=== PATIENT | female | born 1965 | race Caucasian/White ===

== ENCOUNTER 2017-05-01 13:59 | Emergency (ER) | payer OTHER ==
--- NOTE | 2017-05-01 14:40 | EDM.PDOC ---
ED HPI GENERAL MEDICAL PROBLEM - General Chief Complaint: Cardiovascular Problem Stated Complaint: SOB, ARMS TINGLEING Time Seen by Provider: 05/01/17 14:35 Source of Information: Reports: Patient, RN, RN Notes Reviewed History Limitations: Reports: No Limitations - History of Present Illness INITIAL COMMENTS - FREE TEXT/NARRATIVE: Pt presents to the ER with c/o chest pressure, SOB, and arm tingling. She states the symptoms have resolved for the most part. She states the symptoms began about 45 min prior to arrival while at the grocery store. Patient admits to history of panic disorder. Patient also c/o pain in the left thigh that comes and goes. She states she fell on her left knee about 1 year ago and the pain has come and gone since then, she admits to varicose veins. Onset: Today, Sudden Location: Reports: Chest Quality: Reports: Ache Severity: Mild Improves with: Reports: None Worsens with: Reports: None Left Groin Pain Score (Numeric/FACES): 4 - Related Data Allergies Allergy/AdvReac Type Severity Reaction Status Date / Time ciprofloxacin Allergy Facial Verified 12/16/15 22:16 Swelling codeine Allergy Itching Verified 12/16/15 22:16 Home Meds: Home Meds Albuterol Sulfate [Albuterol Sulfate HFA] 2 inh INH Q6HR PRN 12/26/13 [History] Levothyroxine [Levothyroxine] 200 mcg PO DAILY 12/26/13 [History] Calcium Carbonate/Vitamin D3 [Calcium 600 + Vit D Tablet] 1 tab PO BID 11/02/15 [History] Gluc 2KCl/Chondr/Michelle Hy/Hy Ac [Glucosamine & Chondroitin Cap] 1 each PO BID [History] Metoprolol Succinate [Toprol XL] 100 mg PO DAILY 12/11/15 [History] Folic Acid 1 mg PO DAILY 12/16/15 [History] Sertraline HCl [Sertraline HCl] 25 mg PO DAILY 05/01/17 [History] Past Medical History - Past Health History Medical/Surgical History: Denies Medical/Surgical History HEENT History: Reports: Impaired Vision, Sinusitis, Other (See Below) Other HEENT History: corrective lenses Cardiovascular History: Reports: High Cholesterol, Hypertension Respiratory History: Reports: Asthma, Bronchitis, Recurrent Genitourinary History: Reports: UTI, Recurrent [employer]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: Dysfunctional Uterine Bleeding, Other OB/BYN History: c sections Musculoskeletal History: Reports: Back Pain, Chronic, RA Neurological History: Reports: Migraines Psychiatric History: Reports: Anxiety Endocrine/Metabolic History: Reports: Hypothyroidism Hematologic History: Reports: B12 Deficiency, Folic Acid - Past Surgical History GI Surgical History: Reports: Appendectomy, Bariatric Procedure, Cholecystectomy , Other (See Below) Female Surgical History: Reports: Section, D&C Social & Family History - Family History Family Medical History: Noncontributory - Tobacco Use Smoking Status *Q: Never Smoker Second Hand Smoke Exposure: No - Caffeine Use Caffeine Use: Reports: Coffee, Soda, Tea - Alcohol Use Days Per Week of Alcohol Use: 7 Number of Drinks Per Day: 1 Total Drinks Per Week: 7 - Recreational Drug Use Recreational Drug Use: No - Living Situation & Occupation Living situation: Reports: with Family Occupation: Employed ED ROS GENERAL - Review of Systems Review Of Systems: ROS reveals no pertinent complaints other than HPI. ED EXAM, GENERAL - Physical Exam Exam: See Below Exam Limited By: No Limitations General Appearance: Alert, WD/WN, No Apparent Distress Eye Exam: Bilateral Eye: EOMI, Normal Inspection, PERRL Ears: Normal External Exam, Hearing Grossly Normal Nose: Normal Inspection Throat/Mouth: Normal Inspection, Normal Voice, No Airway Compromise Head: Atraumatic, Normocephalic Neck: Normal Inspection, Supple, Non-Tender, Full Range of Motion Respiratory/Chest: No Respiratory Distress, Lungs Clear, Normal Breath Sounds, No Accessory Muscle Use, Chest Non-Tender Cardiovascular: Normal Peripheral Pulses, Regular Rate, Rhythm, No Edema, No Gallop, No JVD, No Murmur, No Rub Peripheral Pulses: 2+: Radial (L), Radial (R) (Female) Exam: Deferred Rectal (Female) Exam: Deferred Back Exam: Normal Inspection, Full Range of Motion Extremities: Normal Inspection, Normal Range of Motion, Non-Tender, No Pedal Edema, Normal Capillary Refill Neurological: Alert, Oriented, CN II-XII Intact, Normal Cognition, Normal Gait, Normal Reflexes, No Motor/Sensory Deficits Psychiatric: Normal Affect, Normal Mood, Anxious Skin Exam: Warm, Dry, Intact, Normal Color, No Rash Lymphatic: No Adenopathy EKG INTERPRETATION EKG Date: 05/01/17 Time: 15:02 Rhythm: NSR Rate (Beats/Min): 73 [place]: Normal P-Wave: Present QRS: Normal ST-T: Normal QT: Normal Comparison: No Change Course - Vital Signs Last Recorded V/S: Last Vital Signs Temp 98.1 F 05/01/17 19:51 Pulse 86 05/01/17 19:51 Resp 18 05/01/17 19:51 BP 140/90 05/01/17 19:51 Pulse Ox 95 05/01/17 19:51 - Orders/Labs/Meds Labs: Laboratory Tests 05/01/17 05/01/17 05/01/17 Range/Units 14:48 14:48 14:48 WBC 9.2 (5.0-10.0) 10^3/uL RBC 3.90 L (4.2-5.4) 10^6/uL Hgb 13.5 (12.0-16.0) g/dL Hct 38.9 (37.0-47.0) % MCV 99.7 (80-100) fL MCH 34.6 H (27.0-34.0) pg MCHC 34.7 (33.0-35.0) g/dL Plt Count 180 (150-450) 10^3/uL Neut % (Auto) 74.8 (42.2-75.2) % Lymph % (Auto) 17.6 L (20.5-50.1) % [place]ardo % (Auto) 6.2 (2-8) % Eos % (Auto) 1.1 (1.0-3.0) % Baso % (Auto) 0.3 (0.0-1.0) % D-Dimer, Quantitative 564 H (0-400) ng/mL Sodium 137 (135-145) mmol/L Potassium 4.1 (3.6-5.0) mmol/L Chloride 104 (101-111) mmol/L Carbon Dioxide 25.0 (21.0-31.0) mmol/L Anion Gap 12.1 BUN 10 (7-18) mg/dL Creatinine 0.9 (0.6-1.3) mg/dL Est Cr Clr Drug Dosing 78.15 mL/min Estimated GFR (MDRD) > 60 BUN/Creatinine Ratio 11.11 Glucose 98 (74-105) mg/dL Calcium 8.5 (8.4-10.2) mg/dl Total Bilirubin 0.8 (0.2-1.0) mg/dL AST 31 (10-42) IU/L ALT 23 (10-60) IU/L Alkaline Phosphatase 67 (42-121) IU/L Troponin I 0.03 H* (0.00-0.02) ng/ml Total Protein 6.5 L (6.7-8.2) g/dl Albumin 3.3 (3.2-5.5) g/dl Globulin 3.2 Albumin/Globulin Ratio 1.03 / Range/Units 18:50 WBC (5.0-10.0) 10^3/uL RBC (4.2-5.4) 10^6/uL Hgb (12.0-16.0) g/dL Hct (37.0-47.0) % MCV (80-100) fL MCH (27.0-34.0) pg MCHC (33.0-35.0) g/dL Plt Count (150-450) 10^3/uL Neut % (Auto) (42.2-75.2) % Lymph % (Auto) (20.5-50.1) % [place]ardo % (Auto) (2-8) % Eos % (Auto) (1.0-3.0) % Baso % (Auto) (0.0-1.0) % D-Dimer, Quantitative (0-400) ng/mL Sodium (135-145) mmol/L Potassium (3.6-5.0) mmol/L Chloride (101-111) mmol/L Carbon Dioxide (21.0-31.0) mmol/L Anion Gap BUN (7-18) mg/dL Creatinine (0.6-1.3) mg/dL Est Cr Clr Drug Dosing mL/min Estimated GFR (MDRD) BUN/Creatinine Ratio Glucose (74-105) mg/dL Calcium (8.4-10.2) mg/dl Total Bilirubin (0.2-1.0) mg/dL AST (10-42) IU/L ALT (10-60) IU/L Alkaline Phosphatase (42-121) IU/L Troponin I < 0.02 (0.00-0.02) ng/ml Total Protein (6.7-8.2) g/dl Albumin (3.2-5.5) g/dl Globulin Albumin/Globulin Ratio - Radiology Interpretation Free Text/Narrative:: Chest xray: Unremarkable See rad report Departure - Departure Time of Disposition: 19:38 Disposition: Home, Self-Care 01 Condition: Good Clinical Impression: Chest pain Qualifiers: Chest pain type: unspecified Qualified Code(s): R07.9 - Chest pain, unspecified Instructions: Shortness of Breath, Adult, [id number], Nonspecific Chest Pain , [id number] Referrals: PCP,None [Primary Care Provider] - Forms: ED Department Discharge Additional Instructions: Return to the ER with any worsening symptoms Follow up with your primary care facility
[2017-05-01 15:15] LABS: CHLORIDE,CL 104 mmol/L (101-111); SODIUM,NA 137 mmol/L (135-145)
[2017-05-01 19:57] VITALS: BP 140/90
--- NOTE | 2017-05-05 13:43 | EKG ---
05/01/2017- RICHI COATES - FINDINGS: EKG per my reading shows sinus rhythm at the rate of 79. This is the EKG from 1835 hours. [facility] /[id number]
--- NOTE | 2017-05-05 13:46 | EKG ---
05/01/2017- RICHI COATES - TIME: 1502 hours. EKG per my reading, shows sinus rhythm at a rate of 73. [facility] /[id number]
== END 2017-05-01 19:58 | disposition home or self-care (01) ==
LOC: DL.ED 13:59
DX: R07.89 Other chest pain (principal); I10 Essential (primary) hypertension; E78.00 Pure hypercholesterolemia, unspecified; E03.9 Hypothyroidism, unspecified; Z88.5 Allergy status to narcotic agent; Z88.1 Allergy status to other antibiotic agents; Z79.899 Other long term (current) drug therapy
CPT/HCPCS: 36415; 71046; 80053; 84484; 85025; 85379; 93005; 99285

== ENCOUNTER 2024-05-23 03:03 | Emergency (ER) | payer OTHER ==
[2024-05-23] MEDS ORDERED: Sodium Chloride 0.9% 10 ML Syringe FLUSH PRN (03:08)
[2024-05-23] MEDS: Sodium Chloride 0.9% 1,000 ML IV ONE (03:30)
[2024-05-23 03:42] LABS: HEMATOCRIT 23.3 % (37.0-47.0); MEAN CORPUSCULAR HEMOGLOBIN 34.5 pg (27.0-34.0); MEAN CORPUSCULAR HGB CONC 34.3 g/dL (33.0-35.0); MEAN CORPUSCULAR VOLUME 100.4 fL (80-100); PLATELET COUNT,PLT 135 10^3/uL (150-450); RED BLOOD CELL COUNT 2.32 10^6/uL (4.2-5.4)
[2024-05-23 03:44] LABS: BASOPHILS PERCENT AUTO 0.1 % (0.0-1.0); EOSINOPHILS PERCENT AUTO 0.1 % (1.0-3.0); LYMPHOCYTES PERCENT AUTO 12.7 % (20.5-50.1); MONOCYTES PERCENT AUTO 6.3 % (2-8); NEUTROPHILS PERCENT AUTO 80.8 % (42.2-75.2)
[2024-05-23 04:02] LABS: B-TYPE NATRIURETIC PEPTIDE,BNP 41 pg/ml (0-100)
[2024-05-23 04:14] LABS: ALANINE AMINOTRANSFERASE,ALT 8 U/L (14-59); ALBUMIN 1.3 g/dL (3.4-5.0); ALKALINE PHOSPHATASE 90 U/L (46-116); ANION GAP 19.7 mEq/L (7-13); ASPARTATE AMNIOTRANSFERASE,AST 17 U/L (15-37); BILIRUBIN TOTAL 1.6 mg/dL (0.2-1.0); BLOOD UREA NITROGEN,BUN 44 mg/dL (7-18); BUN/CREATININE RATIO 12.5 (No establ ref range); C-REACTIVE PROTEIN 12.03 ng/dL (<=0.50); CALCIUM 7.5 mg/dL (8.5-10.1); CARBON DIOXIDE,CO2 17 mmol/L (21-32); CHLORIDE,CL 96 mmol/L (98-107); CREATINE KINASE,CK 52 U/L (16-191); CREATININE 3.52 mg/dL (0.55-1.02); GLUCOSE RANDOM 81 mg/dL (70-99); LIPASE 6 U/L (16-77); MAGNESIUM 1.7 mg/dL (1.8-2.4); POTASSIUM,K 4.7 mmol/L (3.5-5.1); PROTEIN TOTAL,TP 6.1 g/dL (6.4-8.2); SODIUM,NA 128 mmol/L (136-145)
[2024-05-23] MEDS: Sodium Chloride 0.9% 1,000 ML IV SCH (04:14)
[2024-05-23 04:18] LABS: A/G RATIO 0.27; ESTIMATED GFR 15 mL/min (>=60); LACTIC ACID 5.6 mmol/L (0.4-2.0)
[2024-05-23] MEDS: Norepinephrine Bit/D5W Premix 250 ML IV SCH (04:41)
[2024-05-23 04:45] LABS: INR 1.5 (0.9-1.2); PROTHROMBIN TIME 15.6 SEC (9.0-12.0); PTT,PARTIAL THROMBOPLSTIN TIME 37.7 SEC (22.0-34.0)
[2024-05-23 05:17] LABS: APPEARANCE,URINE CLOUDY (CLEAR); BILIRUBIN,URINE LARGE (NEGATIVE); COLOR,URINE DARK YELLOW (YELLOW); GLUCOSE,URINE NEGATIVE (NEGATIVE); KETONES,URINE 15 (NEGATIVE); LEUKOCYTE ESTERASE,URINE LARGE (NEGATIVE); NITRITE,URINE NEGATIVE (NEGATIVE); OCCULT BLOOD,URINE LARGE (NEGATIVE); PROTEIN,URINE >=300 (NEGATIVE)
[2024-05-23 05:20] LABS: AMPHETAMINES,URINE NEGATIVE (NEGATIVE); BARBITURATES,URINE NEGATIVE (NEGATIVE); BENZODIAZEPINE,URINE NEGATIVE (NEGATIVE); MDMA (ECSTASY), URINE NEGATIVE (NEGATIVE); METHADONE,URINE NEGATIVE (NEGATIVE); METHAMPHETAMINES,URINE NEGATIVE (NEGATIVE); OPIATES,URINE NEGATIVE (NEGATIVE); OXYCODONE,URINE NEGATIVE (NEGATIVE); PHENCYCLIDINE,URINE NEGATIVE (NEGATIVE); TCA,URINE NEGATIVE (NEGATIVE)
[2024-05-23 05:20] LABS: LYMPHOCYTES PERCENT MAN 7 % (20-50); MONOCYTES PERCENT MAN 5 % (2-8); NRBC MANUAL 2 /100WBC; SEG NEUTROPHILS PERCENT MAN 88 % (42-75)
[2024-05-23 05:23] LABS: BACTERIA,URINE MODERATE /HPF (0-FEW/HPF); EPITHELIAL CELLS,URINE MODERATE /HPF (NOT SEEN); MUCUS,URINE FEW /LPF (NOT SEEN); RBC,URINE 0-5 /HPF (0-5)
[2024-05-23 05:53] VITALS: BP 112/68; PULSE 85
== END 2024-05-23 05:53 ==
LOC: DL.ED 03:03
DX: N17.9 Acute kidney failure, unspecified (principal); E86.0 Dehydration; E87.20 Acidosis, unspecified; K76.82 Hepatic encephalopathy; R62.7 Adult failure to thrive; E78.00 Pure hypercholesterolemia, unspecified; I10 Essential (primary) hypertension; E03.9 Hypothyroidism, unspecified; Z88.5 Allergy status to narcotic agent; Z88.1 Allergy status to other antibiotic agents; Z79.890 Hormone replacement therapy; Z79.899 Other long term (current) drug therapy; Z90.49 Acquired absence of other specified parts of digestive tract
CPT/HCPCS: 36415; 51702; 71045; 80053; 80305-QW; 80307; 81001; 82140; 82272; 82550; 83605; 83690; 83735; 83880; 84484; 85025; 85610; 85730; 86140; 87040; 87077; 87086; 87186; 93005; 96361; 96365; 99285-25; J7030